=== PATIENT | male | born 1960 | race Caucasian/White ===

== ENCOUNTER 2019-09-13 02:25 | Observation (INO) ==
[2019-09-13] MEDS ORDERED: Ondansetron 4 MG/2 ML VIAL IVP PRN (04:18)
[2019-09-13] MEDS ORDERED: Naloxone 0.4 MG/ML INJ IVP PRN (04:18)
[2019-09-13] MEDS ORDERED: Acetaminophen 325 MG TABLET PO PRN (04:18)
[2019-09-13] MEDS ORDERED: Benzonatate 100 MG CAPSULE PO PRN (04:30)
[2019-09-13] MEDS ORDERED: Ipratropium/Albuterol Neb 3 ML ONE (04:35)
[2019-09-13] MEDS: Ipratropium/Albuterol Neb 3 ML IH SCH ×4 (04:37→21:49)
[2019-09-13] MEDS ORDERED: ALPRAZolam 1 MG TABLET PO PRN (04:45)
[2019-09-13] MEDS: 0.9 % Sodium Chloride 1,000 ML IVC SCH ×2 (04:52→09:00)
[2019-09-13] MEDS: *HR* Heparin 5,000 UNIT/ML VIAL SQ SCH ×2 (05:53→17:31)
[2019-09-13] MEDS: Pantoprazole 40 MG VIAL IVP SCH (05:53)
[2019-09-13] MEDS: Insulin LISPRO 300 UNITS/3 ML VIAL SQ SCH ×2 (05:54→13:13)
[2019-09-13] MEDS ORDERED: Morphine Sulfate 2 MG/ML SYRINGE IVP ONE (06:23)
[2019-09-13] MEDS ORDERED: *HR* HYDROmorphone (PF) 1 MG/ML SYRINGE IVP ONE (06:37)
[2019-09-13] MEDS ORDERED: *HR* OxyCODONE/APAP 5/325 TABLET PO PRN (06:38)
[2019-09-13] MEDS: Nicotine 14 MG PATCH.TD24 TD SCH (08:59)
[2019-09-13] MEDS: Lisinopril-HCTZ 20-12.5mg TABLET PO SCH (08:59)
[2019-09-13] MEDS: *HR* OxyCODONE/APAP 5/325 TABLET PO PRN ×2 (10:39→17:32)
[2019-09-13] MEDS: levoFLOXacin 750 MG/150 ML 750 MG/150 ML BAG IVPB SCH (13:21)
[2019-09-13 15:18] LABS: Adenovirus Not Detected (Not Detect); Bordetella Pertussis Not Detected (Not Detect); Chlamydophila pneumoniae Not Detected (Not Detect); Coronavirus 229E Not Detected (Not Detect); Coronavirus HKU1 Not Detected (Not Detect); Coronavirus NL63 Not Detected (Not Detect); Coronavirus OC43 Not Detected (Not Detect); Human Metapneumovirus Not Detected (Not Detect); Human Rhinovirus/Enterovirus Not Detected (Not Detect); Influenza A Subtype 2009 H1 Not Detected (Not Detect); Influenza B Not Detected (Not Detect); Mycoplasma pneumoniae Not Detected (Not Detect); Parainfluenza Virus 1 Not Detected (Not Detect); Parainfluenza Virus 2 Not Detected (Not Detect); Parainfluenza Virus 3 Not Detected (Not Detect); Parainfluenza Virus 4 Not Detected (Not Detect); Respiratory Syncytial Virus Not Detected (Not Detect)
[2019-09-13] MEDS ORDERED: Insulin LISPRO 300 UNITS/3 ML VIAL SQ SCH (21:00)
[2019-09-14] MEDS: *HR* OxyCODONE/APAP 5/325 TABLET PO PRN (00:44)
[2019-09-14] MEDS: Ipratropium/Albuterol Neb 3 ML IH SCH ×2 (04:06→09:58)
[2019-09-14 06:01] LABS: Basophils % 0.7 %; Eosinophils # 0.4 K/mcL (0.0-0.6); Hematocrit 39.8 % (37.5-50.1); Hemoglobin 13.4 g/dL (12.9-16.9); Immature Granulocytes % 0.4 % (0-4); Lymphocytes # 1.4 K/mcL (0.6-4.6); Lymphocytes % 30.2 %; Mean Corpuscular HGB Conc 33.7 g/dL (31.6-35.5); Mean Corpuscular Hemoglobin 33.4 pg (28.0-33.3); Mean Corpuscular Volume 99.3 fL (83.0-100.0); Mean Platelet Volume 10.5 fL (9.4-12.4); Monocytes # 0.5 K/mcL (0.0-1.3); Monocytes % 11.3 %; Neutrophils # 2.2 K/mcL (1.6-8.9); Platelet Count 167 K/mcL (140-400); Red Blood Count 4.01 M/mcL (4.19-5.50); Red Cell Distribution Width 11.5 % (11.5-14.5); Segmented Neutrophils % 49.4 %; White Blood Count 4.5 K/mcL (4.3-11.1)
[2019-09-14] MEDS: Pantoprazole 40 MG VIAL IVP SCH (06:07)
[2019-09-14] MEDS: *HR* Heparin 5,000 UNIT/ML VIAL SQ SCH (06:07)
[2019-09-14 06:13] LABS: Alanine Aminotransferase 15 Units/L (7-52); Albumin 3.6 g/dL (3.5-5.7); Albumin/Globulin Ratio 1.2 (1.1-2.2); Alkaline Phosphatase 100 Units/L (34-104); Aspartate Amino Transferase 11 Units/L (13-39); BUN/Creatinine Ratio 12 (6-26); Bilirubin,Total 0.5 mg/dL (0.3-1.0); Blood Urea Nitrogen 10 mg/dL (6-20); Calcium 9.3 mg/dL (8.6-10.3); Carbon Dioxide 22 mEq/L (23-29); Chloride 104 mEq/L (98-107); Globulin 2.9 g/dL (2.4-3.5); Glucose 166 mg/dL (70-105); Magnesium 1.9 mg/dL (1.6-2.6); Osmolality,Calculated 281 (280-300); Sodium 134 mEq/L (136-145); Total Protein 6.5 g/dL (6.4-8.9); eGFR For African Americans > 60 (> 60); eGFR For Non-African Americans > 60 (> 60)
[2019-09-14] MEDS ORDERED: Insulin LISPRO 300 UNITS/3 ML VIAL SQ SCH (07:30)
[2019-09-14] MEDS: Nicotine 14 MG PATCH.TD24 TD SCH (09:40)
[2019-09-14] MEDS: levoFLOXacin 750 MG/150 ML 750 MG/150 ML BAG IVPB SCH (09:41)
[2019-09-14] MEDS: Lisinopril-HCTZ 20-12.5mg TABLET PO SCH (09:41)
[2019-09-14 10:27] VITALS: BP 155/85
== END 2019-09-14 13:20 | disposition home or self-care (01) ==
LOC: 3ANU → SUATTDRO 02:25
PROVIDERS: ADMIT Internal Medicine; ATTEND Internal Medicine